=== PATIENT | male | born 1930 | race Caucasian/White ===

== ENCOUNTER 2019-09-08 14:55 | Observation (INO) ==
[2019-09-08 15:22] LABS: Immature Granulocytes % 0.7 % (0-4); Immature Platelets 2.7 % (1.1-6.1)
[2019-09-08 15:24] LABS: INR 2.5; Prothrombin Time 28.7 Seconds (9.4-12.1)
[2019-09-08 15:26] LABS: Hemoglobin 15.1 g/dL (12.9-16.9)
[2019-09-08 15:27] LABS: Activated Partial Thrombo Time 34.3 Seconds (26.0-36.0)
[2019-09-08 15:28] LABS: Basophils % 0.6 %; Eosinophils # 0.1 K/mcL (0.0-0.6); Eosinophils % 1.5 %; Hematocrit 45.3 % (37.5-50.1); Lymphocytes # 1.1 K/mcL (0.6-4.6); Lymphocytes % 20.6 %; Mean Corpuscular HGB Conc 33.3 g/dL (31.6-35.5); Mean Corpuscular Hemoglobin 31.7 pg (28.0-33.3); Mean Platelet Volume 9.6 fL (9.4-12.4); Monocytes # 0.4 K/mcL (0.0-1.3); Monocytes % 7.9 %; Neutrophils # 3.7 K/mcL (1.6-8.9); Platelet Count 130 K/mcL (140-400); Red Blood Count 4.77 M/mcL (4.19-5.50); Red Cell Distribution Width 13.5 % (11.5-14.5); Segmented Neutrophils % 68.7 %; White Blood Count 5.4 K/mcL (4.3-11.1)
[2019-09-08 15:41] LABS: BUN/Creatinine Ratio 14 (6-26); Blood Urea Nitrogen 11 mg/dL (8-23); Calcium 8.9 mg/dL (8.6-10.3); Carbon Dioxide 25 mEq/L (23-29); Chloride 105 mEq/L (98-107); Glucose 144 mg/dL (70-105); Osmolality,Calculated 284 (280-300); Potassium 3.7 mEq/L (3.5-5.1); Sodium 136 mEq/L (136-145); eGFR For African Americans > 60 (> 60); eGFR For Non-African Americans > 60 (> 60)
[2019-09-08] MEDS ORDERED: Naloxone 0.4 MG/ML INJ IVP PRN (17:11)
[2019-09-08] MEDS ORDERED: *HR* HYDROcodone/Acet 5/325 mg TABLET PO PRN (17:59)
[2019-09-08] MEDS ORDERED: Acetaminophen 325 MG TABLET PO PRN (17:59)
[2019-09-08] MEDS: *HR* OxyCODONE Immed Rel 5 MG TABLET PO PRN (20:18)
[2019-09-08] MEDS ORDERED: Insulin NPH/REG 70/30 100 UNIT/ML (x5UNIT) SQ SCH (21:00)
[2019-09-09] MEDS: *HR* OxyCODONE Immed Rel 5 MG TABLET PO PRN (02:32)
[2019-09-09 06:55] VITALS: BP 96/59
[2019-09-09 07:28] LABS: INR 2.6; Prothrombin Time 29.4 Seconds (9.4-12.1)
[2019-09-09] MEDS ORDERED: Insulin NPH/REG 70/30 100 UNIT/ML (x5UNIT) SQ SCH (09:00)
== END 2019-09-09 12:57 | disposition home or self-care (01) ==
LOC: 3BNU 14:55 → EMEROOARM 14:55 → SUATTDRO 16:57 → 3BNU 17:35
PROVIDERS: ADMIT Internal Medicine; ATTEND Student in an Organized Health Care Education/Training Program